=== PATIENT | female | born 1990 | race Caucasian/White ===

== ENCOUNTER 2023-01-05 13:39 | Emergency (ER) | payer OTHER ==
[~2023-01-05] VITALS: Ht 157.5 cm; Wt 58.5 kg
[2023-01-05 13:50] VITALS: BP 115/73
--- NOTE | 2023-01-05 15:36 | NUR ---
PT AMBULATED TO BED 8
--- NOTE | 2023-01-05 15:55 | NUR ---
Female Adjunct Instructor In Economics accompanied female patient for Pelvic Exam.
--- NOTE | 2023-01-05 16:00 | NUR ---
32YO FEMALE PT C/O VAGINAL DISCHARGE AND ODOR X3-4DAYS. NOTES YELLOW DISCHARGE AND ONSET AFTER SEXUAL INTERCOURSE. DENIES BLEEDING, ABD PAIN, N/V/D, FEVER OR CHILLS. MOIST COUGH PRESENT. RENATO LUNG SOUNDS. PT AAOX4, HOB POSITIONED PER COMFOFRT HX: ASTHMA NKA
--- NOTE | 2023-01-05 16:02 | NUR ---
pt swabbed for covid(delio) and flu. vag swabs collected. walked to lab
--- NOTE | 2023-01-05 17:17 | NUR ---
PT AMBULATED TO LOBBY. WAITING LAB RESULTS
[2023-01-05 17:44] LABS: BILIRUBIN,URINE NEGATIVE (NEGATIVE); BLOOD, URINE NEGATIVE (NEGATIVE); COLOR,URINE YELLOW (YELLOW); LEUKOCYTE ESTERASE ,URINE NEGATIVE (NEGATIVE); NITRITE, URINE NEGATIVE (NEGATIVE); UGLUCOSE NEGATIVE (NEGATIVE)
[2023-01-05 17:53] LABS: APPEARANCE,URINE A (CLEAR)
[2023-01-05] MEDS ORDERED: PROM118S5 PO (19:03)
[2023-01-05] MEDS ORDERED: IBUP-2213 PO (19:03)
--- NOTE | 2023-01-05 19:30 | NUR ---
pt called, no response.
--- NOTE | 2023-01-05 20:00 | NUR ---
pt called no response
[2023-01-05] MEDS ORDERED: CLOT2CRE VG (20:26)
--- NOTE | 2023-01-05 20:30 | NUR ---
pt called no response
[2023-01-05 21:00] VITALS: BP 120/73
--- NOTE | 2023-01-05 21:00 | NUR ---
pt left without dc paperwork.
[2023-01-09] MEDS ORDERED: CLOT2CRE VG (11:41)
== END 2023-01-05 21:00 | disposition home or self-care (01) ==
LOC: MED 13:39
DX: B37.31 Acute candidiasis of vulva and vagina (principal); Z20.822 Contact with and (suspected) exposure to COVID-19; J06.9 Acute upper respiratory infection, unspecified
CPT/HCPCS: 81003; 81025; 87110; 87210; 87299; 87491; 99283

== ENCOUNTER 2024-01-27 23:35 | Emergency (ER) | payer OTHER ==
[~2024-01-27] VITALS: Ht 157.5 cm; Wt 65.8 kg
[~2024-01-27 23:35] MED LIST: CLOT2CRE VG; IBUP-2213 PO; PROM118S5 PO
[2024-01-27 23:50] VITALS: BP 117/87; PULSE 77; RESP 18; TEMP 209.5; TEMP 98.6; O2SAT 100
[2024-01-28] MEDS ORDERED: NAPR-337 PO (01:22)
[2024-01-28] MEDS: KETOROLAC 30 MG/ML VIAL IM ONE (01:31)
[2024-01-28 01:37] VITALS: O2SAT 100
== END 2024-01-28 01:37 | disposition home or self-care (01) ==
LOC: MED 23:35
DX: S63.696A Other sprain of right little finger, initial encounter (principal); Y04.0XXA Assault by unarmed brawl or fight, initial encounter; Y93.89 Activity, other specified; Y92.89 Other specified places as the place of occurrence of the external cause; Y99.8 Other external cause status
CPT/HCPCS: 29130; 73130; 81025; 96372; 99283; J1885